=== PATIENT | male | born 1985 | race Two or more races ===

== ENCOUNTER 2021-03-27 08:34 | Emergency (ER) | payer OTHER ==
[~2021-03-27] VITALS: Ht 177.8 cm; Wt 89.7 kg
[2021-03-27 10:02] LABS: Albumin 3.9 g/dL (3.4-5.0); Calcium 8.6 mg/dL (8.5-10.1); Potassium 3.9 mmol/L (3.5-5.1)
[2021-03-27 10:06] LABS: BUN/Creatinine Ratio 12.2; Bilirubin, Total 0.8 mg/dL (0.2-1.0); Total Protein 7.8 g/dL (6.4-8.2)
[2021-03-27 10:09] LABS: Basophils % (auto) 0.7 % (0.0-2.0); Eosinophils # (auto) 0.1 10 ^3/uL (0-0.8); Eosinophils % (auto) 1.7 % (0.0-7.0); Hematocrit 44.9 % (41.0-53.0); Hemoglobin 16.2 g/dL (13.5-17.5); Lymphocytes # (auto) 1.4 10 ^3/uL (0.4-5.4); Lymphocytes % (auto) 27.6 % (10.0-50.0); Mean Corpuscular Hemoglobin 32.4 pg (28.0-32.0); Monocytes # (auto) 0.5 10 ^3/uL (0-1.3); Monocytes % (auto) 8.9 % (0.0-12.0); Neutrophils # (auto) 3.2 10 ^3/uL (1.6-8.6); Neutrophils % (auto) 61.1 % (37.0-80.0); Nucleated Red Blood Cells % 0.2 %; Platelet Count (auto) 209 10^3/uL (140-450); Red Cell Distribution Width 12.7 % (11.8-14.3); White Blood Cell 5.3 10^3/uL (4.4-10.8)
[2021-03-27 10:10] LABS: Basophils # (auto) 0 10 ^3/uL (0-0.2)
[2021-03-27] MEDS ORDERED: LISINOPRIL 20 MG TAB PO ONE (10:15)
[2021-03-27 11:00] VITALS: BP 167/111
== END 2021-03-27 12:20 | disposition home or self-care (01) ==
LOC: ER 08:34
DX: B02.9 Zoster without complications (principal); I10 Essential (primary) hypertension
CPT/HCPCS: 36415; 80053; 85025